=== PATIENT | male | born 2000 | race Hispanic/Latino ===

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

== ENCOUNTER 2022-05-22 01:17 | Emergency (ER) | payer BC | END 2022-05-22 03:36 | disposition home or self-care (01) | LOC: ERS 01:17 | DX: S93.602A Unspecified sprain of left foot, initial encounter (principal); X50.1XXA Overexertion from prolonged static or awkward postures, initial encounter; Y93.68 Activity, volleyball (beach) (court); I10 Essential (primary) hypertension; R73.03 Prediabetes ==